=== PATIENT | female | born 1995 | race Caucasian/White ===

== ENCOUNTER 2023-07-15 12:16 | Inpatient (IN) ==
[2023-07-15 12:59] LABS: Basophils # (auto) 0.04 K/uL (0.00-0.20); Basophils % (auto) 0.4 %; Eosinophils # (auto) 0.64 K/uL (0.00-0.50); Eosinophils % (auto) 6.9 %; Hematocrit (blood only) 36.1 % (37.0-47.0); Hemoglobin 12.1 g/dl (12.0-16.0); Immature Granulocytes # (auto) 0.07 K/uL (0.01-0.20); Immature Granulocytes % (auto) 0.8 %; Lymphocytes # (auto) 1.66 K/uL (1.20-3.40); Mean Corpuscular Hemoglobin 28.3 pg (25.0-34.0); Mean Corpuscular Hgb Conc 33.5 g/dL (32.0-36.0); Mean Corpuscular Volume 84.5 fL (80.0-100.0); Mean Platelet Volume 10.7 fL (9.4-12.4); Monocytes % (auto) 7.6 %; Neutrophils # (auto) 6.11 K/uL (1.40-6.50); Neutrophils % (auto) 66.3 %; Platelet Count 239 K/uL (130-400); RDW Coefficient of Variation 13.8 % (11.5-14.5); RDW Standard Deviation 42.8 fL (36.4-46.3); Red Blood Count 4.27 M/uL (4.20-5.40); White Blood Count 9.22 K/ul (4.8-10.8)
[2023-07-15 13:35] LABS: Albumin Globulin Ratio 1.1 (0.9-2); Albumin Level 3.1 gm/dl (3.4-5.0); BUN Creatinine Ratio 14.6 (10-20); Bilirubin,Total 0.2 mg/dl (0.2-1.0); Calcium 8.4 mg/dl (8.6-10.3); Creatinine Clr Calc Pharmacy 110.5 ml/min; Est GFR (African American) 86.9 ml/min; Globulin 2.9 gm/dl (2.5-4.0); Potassium 4.2 mmol/L (3.5-5.1)
[2023-07-15 13:53] LABS: Creatinine Urine Random 288.8 mg/dl; Protein Creatinine Ratio Urine 1.4 (0-0.2); Total Protein Urine Random 390.9 mg/dl (0-11.9)
--- NOTE | 2023-07-15 14:13 | History & Physical Report ---
Date of Service July 15, 2023 Assessment & Plan (1) Preeclampsia: Plan: Elevated BPs and elevated protein/creatinine ratio. Labs showing elevated creatinine and liver enzymes, however does not yet meet criteria for severe features. Discussed that we will continue monitoring patient at L&D - I am concerned that she may develop severe features during this observation time. If lab abnormalities or symptoms or BPs in severe range present, then would recommend induction at that time. Will plan to repeat labs in 6h and reevaluate at that time. Since I suspect will likely deliver baby prior to 37w, recommend celestone for lung maturity. Last Lovenox last night - will reevaluate need for Heparin vs proceeding to induction at next labs this evening. History of Present Illness Chief Complaint: elevated BP Primary Care Provider: Emma Gay 27yo @ 36 08/25. Sent from office to L&D for further eval after BP elevated in office. She is asymptomatic, no headache/vision changes/nausea/vomiting/abd pain. Last Lovenox last night - met with Dr Julio today for switch to Heparin; has not started this yet. Hypothyroid *Check TFTs Q4wks HX DVT 02/07 - on Lovenox *Lovenox 100mg in 3rd trimester *switch to Heparin 10,000 U BID @36w Obesity (BMI between 35-39 @ beginning of ) *Growth US @ 32 wks *Weekly NSTs @ 36wks Allergies Allergy/AdvReac Type Severity Reaction Status Date / Time No Known Allergies Allergy Verified 07/15/23 10:59 Home Medications Medication Instructions Recorded Confirmed Type prenat.vits,juan alberto,[id number] 1 tab PO DAILY 12/27/22 07/15/23 History breast pump #1 ea 06/05/23 07/15/23 Rx breast pump #1 ea 06/05/23 07/15/23 Rx compression socks, medium #1 ea 06/05/23 07/15/23 Rx enoxaparin 100 mg/mL subcutaneous 100 mg subcut Q24H #10 syringes 07/15/23 07/15/23 Rx syringe heparin (porcine) 10,000 unit/mL 10,000 unit subcut Q12H #25 mL 07/15/23 07/15/23 Rx injection solution levothyroxine See Rx Instructions PO .COMPLEX 07/15/23 07/15/23 History syringe with needle 3 mL 25 x 5/8" #50 ea 07/15/23 07/15/23 Rx (BD Eclipse Luer-Danny) Patient History Medical History (Updated 07/15/23 @ 14:16 by Karey Carbajal, ) DVT (deep venous thrombosis) Deep vein phlebitis of lower leg Surgical History (Updated 12/27/22 @ 10:09 by Idalia Yañez RN) S/P wisdom tooth extraction Family History (Updated 12/27/22 @ 10:09 by Idalia Yañez RN) Grandfather (Maternal) Myocardial infarction Sister Hemorrhage affecting Mother Hemorrhage affecting Denies family history of Ovarian cancer Prostate cancer Breast cancer Colorectal cancer Social History (Updated 12/27/22 @ 09:57 by Idalia Yañez, DESI) Smoking Status: Never smoker Second Hand Exposure: No; Do You Dip or Chew Tobacco: No; Hx Alcohol Use: No Hx Substance Use: No Preferred Language: Thai Communication Ability: Effective Channel Development Manager Required: No Beliefs That Will Affect Care: None marital status: marital status details: Richard Atwood ( [phone] Current Living Situation: Spouse Current Living Situation Comment: Lives with and 1 dog current occupational status: employed current occupation: [employer] Teacher Other Information That Helps Us Care for You: No Feels Safe at Home: Yes Safety Concerns: Feels Safe At This Time Assistive Devices: None Review of Systems All systems reviewed & are unremarkable except as noted in HPI & below Physical Exam Constitutional: WD/WN, vitals as above Respiratory: normal respiratory effort, lungs clear to auscultation no respiratory distress Cardiovascular: Rate/Rhythm: regular rate and regular rhythm Gastrointestinal (Abdomen): Inspection/Auscultation: abdomen normal to inspection Percussion/Palpation: abdomen soft; abdomen nontender Gravid. No s/s chorio or abruption. Skin: no rashes, warm and dry Psychiatric: A+Ox3, euthymic affect Results & Data Vital Signs (Past 12 Hours) Vital Signs Temp Pulse Resp BP 07/15/23 14:04 74 171/90 H 07/15/23 13:54 80 153/91 H 07/15/23 13:45 72 157/94 H 07/15/23 13:34 68 148/92 H 07/15/23 13:24 69 155/99 H 07/15/23 13:14 36.5 C 78 18 147/82 H 07/15/23 13:05 75 156/91 H 07/15/23 12:54 74 151/95 H 07/15/23 12:45 79 154/95 H 07/15/23 12:41 36.5 C 79 16 154/95 H 07/15/23 12:30 80 164/103 H Code Status & VTE Plan VTE Prophylaxis Plan VTE Prophylaxis will be ordered: Yes Coding Level of Care Code None Diagnoses Preeclampsia O14.90
[2023-07-15] MEDS ORDERED: BETAMETH SOD PHOS/ACETATE IA 6 MG/ML IM STA (14:19)
[2023-07-15] MEDS ORDERED: LIDOCAINE 1% LOCAL 20 ML VIAL INFIL PRN (17:34)
[2023-07-15] MEDS ORDERED: OXYTOCIN 30 UNITS/NSS 30 UNITS/500 ML BAG IV PRN ×2 (17:34)
[2023-07-15] MEDS ORDERED: MAG SULFATE 4GM BOLUS FROM BAG IV ONE (17:34)
--- NOTE | 2023-07-15 17:42 | Obstetrical Progress Note ---
Date of Service July 15, 2023 Subjective BPs have elevated to meet criteria of preeclampsia with severe features at this point, as >4h apart 160/110 or greater. Discussed with patient. Will admit, start magnesium, will treat elevated BP with PO nifedipine at this time as no IV yet, and will plan to place grimm bulb for cervical ripening. She is in agreement, questions answered. Results & Data Vital Signs (Past 12 Hours) Vital Signs Temp Pulse Resp BP 07/15/23 17:37 71 159/111 H 07/15/23 17:22 71 175/99 H 07/15/23 17:07 64 153/95 H 07/15/23 16:52 68 172/97 H 07/15/23 16:36 72 153/105 H 07/15/23 16:21 77 146/103 H 07/15/23 16:08 69 144/102 H 07/15/23 15:51 75 151/91 H 07/15/23 15:36 71 143/91 H 07/15/23 15:21 78 139/92 07/15/23 15:05 37.0 C 74 20 168/92 H 07/15/23 14:04 74 171/90 H 07/15/23 13:54 80 153/91 H 07/15/23 13:45 72 157/94 H 07/15/23 13:34 68 148/92 H 07/15/23 13:24 69 155/99 H 07/15/23 13:14 36.5 C 78 18 147/82 H 07/15/23 13:05 75 156/91 H 07/15/23 12:54 74 151/95 H 07/15/23 12:45 79 154/95 H 07/15/23 12:41 36.5 C 79 16 154/95 H 07/15/23 12:30 80 164/103 H PG Care Time/CCT Total # of Minutes Spent Total Time Spent with Patient: Total time spent is greater than 50% in coordination of care (as documented) at patient's floor/unit and/or counseling patient: Coding Level of Care Code None
[2023-07-15] MEDS ORDERED: PENICILLIN GK 6 MU in DEXTROSE 5% 250 ML IV STA (17:43)
[2023-07-15] MEDS ORDERED: NIFEdipine 10 MG CAP PO STA (17:45)
[2023-07-15] MEDS: LACTATED RINGER'S 1,000 ML IV PRN (18:20)
[2023-07-15] MEDS: MAGNESIUM SULFATE / WTR 40 GM/1,000 ML BAG IV SCH (18:23)
[2023-07-15 18:52] LABS: Hematocrit (blood only) 39.4 % (37.0-47.0); Hemoglobin 13.6 g/dl (12.0-16.0); Mean Corpuscular Hemoglobin 28.6 pg (25.0-34.0); Mean Corpuscular Hgb Conc 34.5 g/dL (32.0-36.0); Mean Corpuscular Volume 82.8 fL (80.0-100.0); Mean Platelet Volume 10.6 fL (9.4-12.4); Platelet Count 294 K/uL (130-400); RDW Coefficient of Variation 13.9 % (11.5-14.5); RDW Standard Deviation 41.3 fL (36.4-46.3); Red Blood Count 4.76 M/uL (4.20-5.40)
[2023-07-15 19:11] LABS: Albumin Level 3.4 gm/dl (3.4-5.0); Bilirubin,Total 0.2 mg/dl (0.2-1.0); Calcium 8.8 mg/dl (8.6-10.3); Creatinine Clr Calc Pharmacy 107.4 ml/min; Est GFR (African American) 83.9 ml/min; Est GFR (Non-African American) 72.4 ml/min; Globulin 3.4 gm/dl (2.5-4.0); Potassium 4.3 mmol/L (3.5-5.1); Total Protein 6.8 gm/dl (6.0-8.3)
--- NOTE | 2023-07-15 19:41 | Labor Progress Brief Note ---
Date of Service July 15, 2023 Subjective Johnson bulb placed, 35cc sterile water. Tolerated well. Will plan to begin pitocin now, and will start PCN for GBS unknown when the contraction pattern starts. Assessment & Plan Admission and Anticipated Discharge Date Admission Date: July 15, 2023 Results & Data Vital Signs (Past 12 Hours) Vital Signs Temp Pulse Resp BP 07/15/23 19:37 104 H 137/80 07/15/23 19:21 112 H 138/84 07/15/23 19:06 106 H 145/75 H 07/15/23 18:52 112 H 134/67 07/15/23 18:38 118 H 136/81 07/15/23 18:21 130 H 137/72 07/15/23 18:07 79 146/94 H 07/15/23 17:51 82 151/105 H 07/15/23 17:37 71 159/111 H 07/15/23 17:22 71 175/99 H 07/15/23 17:07 64 153/95 H 07/15/23 16:52 68 172/97 H 07/15/23 16:36 72 153/105 H 07/15/23 16:21 77 146/103 H 07/15/23 16:08 69 144/102 H 07/15/23 15:51 75 151/91 H 07/15/23 15:36 71 143/91 H 07/15/23 15:21 78 139/92 07/15/23 15:05 37.0 C 74 20 168/92 H 07/15/23 14:04 74 171/90 H 07/15/23 13:54 80 153/91 H 07/15/23 13:45 72 157/94 H 07/15/23 13:34 68 148/92 H 07/15/23 13:24 69 155/99 H 07/15/23 13:14 36.5 C 78 18 147/82 H 07/15/23 13:05 75 156/91 H 07/15/23 12:54 74 151/95 H 07/15/23 12:45 79 154/95 H 07/15/23 12:41 36.5 C 79 16 154/95 H 07/15/23 12:30 80 164/103 H Coding Level of Care Code None
[2023-07-16 00:50] LABS: Hematocrit (blood only) 36.4 % (37.0-47.0); Hemoglobin 12.2 g/dl (12.0-16.0); Mean Corpuscular Hgb Conc 33.5 g/dL (32.0-36.0); Mean Corpuscular Volume 83.7 fL (80.0-100.0); Mean Platelet Volume 10.8 fL (9.4-12.4); Platelet Count 288 K/uL (130-400); RDW Coefficient of Variation 13.7 % (11.5-14.5); RDW Standard Deviation 41.6 fL (36.4-46.3); Red Blood Count 4.35 M/uL (4.20-5.40); White Blood Count 11.27 K/ul (4.8-10.8)
[2023-07-16 01:06] LABS: Albumin Level 3.2 gm/dl (3.4-5.0); BUN Creatinine Ratio 15.8 (10-20); Bilirubin,Total 0.2 mg/dl (0.2-1.0); Calcium 8.3 mg/dl (8.6-10.3); Creatinine Clr Calc Pharmacy 112.7 ml/min; Est GFR (Non-African American) 76.8 ml/min; Globulin 3.2 gm/dl (2.5-4.0); Magnesium Therapeutic L&D Only 5.1 mg/dL (4.0-8.0); Potassium 4.5 mmol/L (3.5-5.1); Total Protein 6.4 gm/dl (6.0-8.3)
[2023-07-16 06:41] LABS: Hematocrit (blood only) 36.4 % (37.0-47.0); Hemoglobin 12.5 g/dl (12.0-16.0); Mean Corpuscular Hemoglobin 28.6 pg (25.0-34.0); Mean Corpuscular Hgb Conc 34.3 g/dL (32.0-36.0); Mean Corpuscular Volume 83.3 fL (80.0-100.0); Mean Platelet Volume 10.6 fL (9.4-12.4); Platelet Count 285 K/uL (130-400); RDW Coefficient of Variation 13.8 % (11.5-14.5); RDW Standard Deviation 41.7 fL (36.4-46.3); Red Blood Count 4.37 M/uL (4.20-5.40); White Blood Count 15.98 K/ul (4.8-10.8)
[2023-07-16 06:55] LABS: Albumin Level 3.1 gm/dl (3.4-5.0); BUN Creatinine Ratio 15.8 (10-20); Bilirubin,Total 0.2 mg/dl (0.2-1.0); Calcium 7.8 mg/dl (8.6-10.3); Creatinine Clr Calc Pharmacy 119.8 ml/min; Est GFR (African American) 95.8 ml/min; Est GFR (Non-African American) 82.7 ml/min; Globulin 3.1 gm/dl (2.5-4.0); Magnesium Therapeutic L&D Only 5.9 mg/dL (4.0-8.0); Potassium 4.4 mmol/L (3.5-5.1); Total Protein 6.2 gm/dl (6.0-8.3)
[2023-07-16] MEDS: LACTATED RINGER'S 1,000 ML IV PRN ×3 (07:44→17:17)
--- NOTE | 2023-07-16 07:55 | Obstetrical Progress Note ---
Date of Service July 16, 2023 Assessment & Plan Admission and Anticipated Discharge Date Admission Date: July 15, 2023 Subjective Comfortable. FHT Cat 1 Force occ Johnson bulb still in place. Labs improving. BP wnl. Patient in good spirits. Continue IOL, continue mag. 2nd dose celestone ordered for today. Results & Data Vital Signs (Past 12 Hours) Vital Signs Temp Pulse Resp BP 07/16/23 07:37 101 H 137/85 07/16/23 07:07 95 H 133/85 07/16/23 06:41 93 H 141/86 H 07/16/23 06:08 89 151/88 H 07/16/23 06:00 18 07/16/23 06:00 18 07/16/23 05:37 80 158/84 H 07/16/23 05:07 84 156/85 H 07/16/23 05:00 18 07/16/23 05:00 18 07/16/23 04:37 81 140/73 07/16/23 04:07 80 134/75 07/16/23 04:00 18 07/16/23 04:00 18 07/16/23 03:38 88 147/82 H 07/16/23 03:08 82 124/85 07/16/23 03:00 36.6 C 18 07/16/23 03:00 18 07/16/23 03:00 18 07/16/23 03:00 36.6 C 18 07/16/23 02:37 86 139/94 07/16/23 02:07 75 151/93 H 07/16/23 02:00 18 07/16/23 02:00 18 07/16/23 01:36 75 142/89 H 07/16/23 01:07 81 136/82 07/16/23 01:00 18 07/16/23 01:00 18 07/16/23 00:37 88 153/81 H 07/16/23 00:07 89 139/80 07/16/23 00:02 18 07/16/23 00:02 18 07/15/23 23:39 89 132/80 07/15/23 23:00 36.5 C 18 07/15/23 23:00 18 07/15/23 23:00 18 07/15/23 23:00 36.5 C 18 07/15/23 22:37 81 133/76 11/27/23 22:07 83 141/86 H 07/15/23 22:00 18 07/15/23 22:00 18 07/15/23 21:37 100 H 128/84 07/15/23 21:07 96 H 147/84 H 07/15/23 21:00 18 07/15/23 21:00 18 07/15/23 20:52 90 134/79 07/15/23 20:37 93 H 126/58 L 07/15/23 20:21 91 H 136/82 07/15/23 20:06 95 H 132/73 07/15/23 20:00 18 07/15/23 20:00 18 PG Care Time/CCT Total # of Minutes Spent Total Time Spent with Patient: Total time spent is greater than 50% in coordination of care (as documented) at patient's floor/unit and/or counseling patient: Coding Level of Care Code None
[2023-07-16] MEDS ORDERED: fentaNYL citrate PF 100 MCG/2 ML VIAL ONE (09:09)
[2023-07-16] MEDS ORDERED: ePHEDrine sulfate 50 MG/ML AMP ONE (09:09)
[2023-07-16] MEDS ORDERED: SODIUM CHLORIDE 0.9% PF INJ 10 ML VIAL ONE (09:10)
[2023-07-16] MEDS ORDERED: BUPIVACAINE 0.25% PF 30 ML VIAL ONE (09:10)
[2023-07-16] MEDS ORDERED: fentANYL 2 MCG/ML BUPIVacaine 0.125%-NSS 100ML BAG ONE (09:10)
[2023-07-16] MEDS ORDERED: LIDOCAINE 2%/EPINEPHRINE 1:200,000 20 ML PF ONE (09:10)
--- NOTE | 2023-07-16 09:23 | Labor Progress Brief Note ---
Date of Service July 16, 2023 Subjective Reason For Note: Routine Evaluation Denying preeclampsia symptoms Assessment & Plan (1) Severe pre-eclampsia affecting childbirth: Plan: 27-year-old G1, P0 with severe preeclampsia at 36 weeks 2 days gestational age. Fetus: Category 1 tracing Labor: Status post Johnson. Continue oxytocin per regular protocol. Rupture membranes for clear fluid. GBS unknown: Continue penicillin Severe preeclampsia: Continue magnesium sulfate. Denies preeclampsia symptoms. Mild range blood pressures at present. Labs within normal range. (2) Obesity affecting in third trimester: Obesity type affecting : unspecified obesity Qualified Code(s): O99.213 - Obesity complicating , third trimester (3) Hypothyroidism during : Trimester: third trimester Qualified Code(s): O99.283 - Endocrine, nutritional and metabolic diseases complicating , third trimester; E03.9 - Hypothyroidism, unspecified (4) Supervision of normal first : Trimester: third trimester Qualified Code(s): Z34.03 - Encounter for supervision of normal first , third trimester Admission and Anticipated Discharge Date Admission Date: July 15, 2023 Physical Exam Genitourinary: normal external appearance Manual OB Exam: + cervical dilation 3 cm, + cervical effacement 70%, + station -2 and + amniotic fluid (AROM) clear OB Exam Monitor Tracing: + external FHT monitor used, + external uterine monitor used, + category I and + normal FHT variability; no early decelerations present, no late decelerations present and no variable decelerations Results & Data Vital Signs (Past 12 Hours) Vital Signs Temp Pulse Resp BP Pulse Ox 07/16/23 09:14 104 H 07/16/23 09:09 90 98 07/16/23 09:07 87 146/87 H 07/16/23 09:04 104 H 100 07/16/23 09:00 18 07/16/23 09:00 18 07/16/23 08:59 96 H 99 07/16/23 08:54 88 98 07/16/23 08:49 103 H 98 07/16/23 08:44 102 H 99 07/16/23 08:39 99 H 98 07/16/23 08:37 93 H 123/69 07/16/23 08:34 91 H 99 07/16/23 08:29 89 99 07/16/23 08:07 100 H 129/75 07/16/23 08:00 16 07/16/23 08:00 16 07/16/23 07:37 101 H 137/85 07/16/23 07:30 36.5 C 18 07/16/23 07:30 18 07/16/23 07:07 95 H 133/85 07/16/23 06:41 93 H 141/86 H 07/16/23 06:08 89 151/88 H 07/16/23 06:00 18 07/16/23 06:00 18 07/16/23 05:37 80 158/84 H 07/16/23 05:07 84 156/85 H 07/16/23 05:00 18 07/16/23 05:00 18 07/16/23 04:37 81 140/73 07/16/23 04:07 80 134/75 07/16/23 04:00 18 07/16/23 04:00 18 07/16/23 03:38 88 147/82 H 07/16/23 03:08 82 124/85 07/16/23 03:00 36.6 C 18 07/16/23 03:00 18 07/16/23 03:00 18 07/16/23 03:00 36.6 C 18 07/16/23 02:37 86 139/94 07/16/23 02:07 75 151/93 H 07/16/23 02:00 18 07/16/23 02:00 18 07/16/23 01:36 75 142/89 H 07/16/23 01:07 81 136/82 07/16/23 01:00 18 07/16/23 01:00 18 07/16/23 00:37 88 153/81 H 07/16/23 00:07 89 139/80 07/16/23 00:02 18 07/16/23 00:02 18 07/15/23 23:39 89 132/80 07/15/23 23:00 36.5 C 18 07/15/23 23:00 18 07/15/23 23:00 18 07/15/23 23:00 36.5 C 18 07/15/23 22:37 81 133/76 07/15/23 22:07 83 141/86 H 07/15/23 22:00 18 07/15/23 22:00 18 07/15/23 21:37 100 H 128/84 Coding Level of Care Code None Diagnoses Severe pre-eclampsia affecting childbirth O14.14 Obesity affecting in third trimester, unspecified obesity type O99.213 Obesity type affecting : unspecified obesity Hypothyroidism during in third trimester O99.283; E03.9 Trimester: third trimester Encounter for supervision of normal first in third trimester Z34.03 Trimester: third trimester
--- NOTE | 2023-07-16 09:31 | Anesthesiology Consultation ---
Date of Service July 16, 2023 Assessment & Plan Chart Review Chart Review: Patient NOT seen in Pre Admission Testing and Acceptable Risk for Labor Epidural Consults Requested none ASA ASA3 Proposed Anesthesia Anesthesia Type: Labor Epidural Risk / Benefits Reviewed With: PT / POA / Parent / Guardian, Accepts Plan and Informed Consent Obtained History Height/Weight Height: 5 ft 6 in Weight: 122.47 kg Allergies Allergy/AdvReac Type Severity Reaction Status Date / Time No Known Allergies Allergy Verified 07/15/23 10:59 Medications Home Medications Medication Instructions Recorded Confirmed Last Taken prenat.vits,juan alberto,[id number] 1 tab PO DAILY 12/27/22 07/15/23 07/15/23 08:30 breast pump #1 ea 06/05/23 07/15/23 Unknown breast pump #1 ea 06/05/23 07/15/23 Unknown compression socks, medium #1 ea 06/05/23 07/15/23 Unknown enoxaparin 100 mg/mL subcutaneous 100 mg subcut Q24H #10 syringes 07/15/23 07/15/23 07/14/23 21:00 syringe heparin (porcine) 10,000 unit/mL 10,000 unit subcut Q12H #25 mL 07/15/23 07/15/23 Unknown injection solution levothyroxine See Rx Instructions PO .COMPLEX 07/15/23 07/15/23 07/15/23 08:30 syringe with needle 3 mL 25 x 5/8" #50 ea 07/15/23 07/15/23 Unknown (BD Eclipse Luer-Danny) Active Medications Generic Name Dose Route Start Last Admin Trade Name Freq PRN Reason Stop Dose Admin Lactated Ringer's 1,000 mls @ 125 mls/hr 07/15/23 17:34 07/16/23 09:40 Lr IV 07/17/23 17:33 75 mls/hr .Q8H PRN Infusion L&D Protocol Protocol Oxytocin 30 units in 500 mls @ 19 mls/hr 07/15/23 17:34 07/16/23 08:00 Pitocin 30 Units/Nss IV 07/17/23 17:33 1.14 units/hr .Q24H PRN 19 mls/hr Labor Induction/Augmentation Titration Protocol 1.14 UNITS/HR Magnesium Sulfate 40 gm in 1,000 mls @ 50 mls/hr 07/15/23 17:45 07/16/23 07:07 Magnesium Sulfate / Wtr IV 08/14/23 17:44 50 mls/hr .Q20H HAILEY Infusion NPO Date Last Intake of Fluids: 07/16/23 Time Last Intake of Fluids: 06:00 Date Last Intake of Solids: 07/15/23 Time Last Intake of Solids: 18:00 Past Medical History Medical History DVT (deep venous thrombosis) Deep vein phlebitis of lower leg Exercise / Class Metabolic Activity II 4-5 Yardwork/Stairs/Walk up hill Past Family History Family History Grandfather (Maternal) Myocardial infarction Sister Hemorrhage affecting Mother Hemorrhage affecting Denies family history of Ovarian cancer Prostate cancer Breast cancer Colorectal cancer Past Surgical History Surgical History S/P wisdom tooth extraction Past Anesthesia History No Hx of Anesthesia Complications and No Family Hx of Anesthesia Complications History of PONV No Hx of PONV and No Hx of Motion Sickness Social History Smoking Status: Never smoker Do You Dip or Chew Tobacco: No Hx Alcohol Use: No Hx Substance Use: No substance use type: does not use Review of Systems ROS Unobtainable: All systems reviewed & are unremarkable except as noted in HPI & below Physical Exam Vital Signs Last Vital Signs Temp 36.5 C 07/16/23 07:30 Pulse 97 H 07/16/23 09:29 Resp 18 07/16/23 09:30 BP 146/87 H 07/16/23 09:07 Pulse Ox 97 07/16/23 09:29 ENMT Mouth: no TMJ abnormality Thyromental Distance: > or= 3.5 Finger Breadths Mallampati Class: III Neck normal visual inspection and trachea midline; neck extension not limited Respiratory normal respiratory effort Auscultation: lungs clear to auscultation bilaterally Cardiovascular Rate/Rhythm: regular rate and regular rhythm Heart Sounds: no murmur Musculoskeletal Spine: normal cervical ROM Extremities: full ROM of extremities Neurologic moves all extremities Psychiatric Orientation: alert and oriented x 3 Testing Laboratory Results 07/16/23 06:19 07/16/23 06:19 Blood Type A Positive 07/15/23 12:39 Antibody Screen NEGATIVE 07/15/23 12:39
[2023-07-16] MEDS ORDERED: fentaNYL citrate PF 100 MCG/2 ML VIAL EPI PRN (10:06)
[2023-07-16] MEDS ORDERED: fentaNYL citrate PF 100 MCG/2 ML VIAL EPI STA (10:06)
[2023-07-16] MEDS ORDERED: BUPIVACAINE 0.25% PF 30 ML VIAL EPI PRN (10:06)
[2023-07-16] MEDS ORDERED: ePHEDrine sulfate 50 MG/ML AMP IV PRN (10:06)
[2023-07-16] MEDS ORDERED: LIDOCAINE 2% MPF LOCAL 5 ML VIAL EPI PRN (10:06)
[2023-07-16] MEDS ORDERED: fentANYL 2 MCG/ML BUPIVacaine 0.125%-NSS 100ML BAG EPI PRN (10:06)
[2023-07-16] MEDS ORDERED: diphenhydrAMINE 50 MG/ML VIAL IV PRN (10:06)
[2023-07-16] MEDS ORDERED: NALOXONE HCL 0.4 MG/1 ML VIAL/CARP IV PRN (10:06)
[2023-07-16] MEDS ORDERED: NALBUPHINE HCL 5 MG in SYRINGE 0 ML IV PRN (10:06)
[2023-07-16] MEDS ORDERED: BUPIVACAINE 0.25% PF 30 ML VIAL EPI STA (10:06)
[2023-07-16] MEDS ORDERED: SODIUM CHLORIDE 0.9% PF INJ 10 ML VIAL EPI PRN (10:06)
[2023-07-16] MEDS ORDERED: NALOXONE HCL 1 MG in SODIUM CHLORIDE 0.9% 1,000 ML IV PRN (10:06)
[2023-07-16] MEDS ORDERED: LIDOCAINE 2%/EPINEPHRINE 1:200,000 20 ML PF EPI STA (10:06)
[2023-07-16] MEDS ORDERED: ROPIVACAINE 0.5% PF 5 MG/ML 20 ML VIAL EPI PRN (10:06)
[2023-07-16] MEDS ORDERED: SODIUM CHLORIDE 0.9% PF INJ 10 ML VIAL EPI STA (10:06)
[2023-07-16] MEDS: MAGNESIUM SULFATE / WTR 40 GM/1,000 ML BAG IV SCH (11:43)
[2023-07-16 12:38] LABS: Hematocrit (blood only) 35.3 % (37.0-47.0); Hemoglobin 11.7 g/dl (12.0-16.0); Mean Corpuscular Hemoglobin 28.1 pg (25.0-34.0); Mean Corpuscular Hgb Conc 33.1 g/dL (32.0-36.0); Mean Corpuscular Volume 84.7 fL (80.0-100.0); Mean Platelet Volume 10.7 fL (9.4-12.4); Platelet Count 300 K/uL (130-400); RDW Coefficient of Variation 13.9 % (11.5-14.5); RDW Standard Deviation 42.7 fL (36.4-46.3); Red Blood Count 4.17 M/uL (4.20-5.40)
[2023-07-16 12:55] LABS: Albumin Globulin Ratio 1.1 (0.9-2); Albumin Level 3.1 gm/dl (3.4-5.0); BUN Creatinine Ratio 13.7 (10-20); Bilirubin,Total 0.2 mg/dl (0.2-1.0); Calcium 7.6 mg/dl (8.6-10.3); Creatinine Clr Calc Pharmacy 97.3 ml/min; Est GFR (African American) 74.5 ml/min; Est GFR (Non-African American) 64.3 ml/min; Globulin 2.9 gm/dl (2.5-4.0); Potassium 4.2 mmol/L (3.5-5.1)
[2023-07-16] MEDS: PENICILLIN GK 3 MU in DEXTROSE 5% 100 ML IV PRN ×2 (14:03→18:55)
--- NOTE | 2023-07-16 14:28 | Anesthesia Procedure Note ---
Date of Service July 16, 2023 Anesthesia Epidural Re-Dose Vital Signs Temp Pulse Resp BP Pulse Ox 36.5 C 82 16 135/74 97 07/16/23 11:30 07/16/23 14:24 07/16/23 13:30 07/16/23 14:13 07/16/23 14:24 Notes Pain Intensity: 0 Dilatation (cm): 10 Effacement (%): 75 After Epidural Re-Dose Mental Status: alert / awake / arousable and participated in evaluation Pain: improving with treatment Airway Patency, RR, SpO2: stable & adequate BP & HR: stable & adequate Additional Notes: Asked to assess patient for pain on right side. Patient states epidural had been working well until one hour ago Level assessed with ice which revealted T12 level on left, L1 level on right. Redosed epidural with 8 cc of 0.25 bupi. Pain improved. BP stable.
[2023-07-16] MEDS ORDERED: BETAMETH SOD PHOS/ACETATE IA 6 MG/ML IM ONE (14:30)
[2023-07-16] MEDS ORDERED: ONDANSETRON INJ 2 MG/ML 2 ML VIAL IV PRN (16:02)
[2023-07-16] MEDS ORDERED: miSOPROStoL 200 MCG TAB ONE (20:14)
[2023-07-16] MEDS ORDERED: OXYTOCIN 30 UNITS/NSS 30 UNITS/500 ML BAG IV PRN (20:49)
[2023-07-16] MEDS ORDERED: DIPHTHERIA/TETANUS/PERTUSSIS Vaccine (Tdap, Age 7+yrs) 0.5mL SYR/VL IM ONE (20:49)
[2023-07-16] MEDS ORDERED: HYDROCORTISONE ACETATE 25 MG SUPP PR PRN (20:49)
[2023-07-16] MEDS ORDERED: miSOPROStoL 200 MCG TAB PR ONE (20:49)
[2023-07-16] MEDS ORDERED: ACETAMINOPHEN 325 MG TAB PO PRN (20:49)
--- NOTE | 2023-07-16 20:59 | Delivery Summary ---
Vaginal Delivery Summary Date of Service July 16, 2023 Vaginal Delivery Summary and 1st Degree LAC Patient progressed to 10 cm dilated 100% effaced +2 station pushed over intact perineum with epidural anesthesia and delivered a viable female with weight and Apgars pending. Had the delivered in CHRISTIE position transition to right transverse. No nuchal cord was noted. Body and shoulders quickly followed. was noted be vigorous soon after delivery and a 1 minute delayed cord clamping was initiated. Cord was then double clamped and cut and remained on maternal abdomen. Cord blood was obtained. Attention was then turned to deliver the placenta was delivered intact three-vessel cord gentle cord traction. On inspection of perineum vagina and cervix there is noted to be a first-degree perineal laceration which was repaired with 3-0 Vicryl in continuous running stitch. Needle, sponge and instrument counts were correct at the completion of the case. Mom continued on magnesium with plan to continue for 24 hours postdelivery. Patient is currently stable with mostly mild range blood pressures noted. Denies preeclampsia symptoms and labs have been within normal limits. Estimated blood loss of 300 mL. No complications with delivery. 800 mcg of Cytotec placed per rectum. [facility] Vaginal Delivery Charge Delivery Type Details: and 1st Degree LAC
[2023-07-16] MEDS: IBUPROFEN 600 MG TAB PO PRN (22:27)
[2023-07-16] MEDS: BENZOCAINE 20% SPRY 85 APPLN/85 GM CAN EXT PRN (22:28)
--- NOTE | 2023-07-17 04:51 | Obstetrical Progress Note ---
Date of Service <Sumeet Bal DO - Last Filed: 07/17/23 07:18> July 17, 2023 Assessment & Plan <Sumeet Bal DO - Last Filed: 07/17/23 07:18> (1) Preeclampsia: (2) (spontaneous vaginal delivery): (3) History of DVT (deep vein thrombosis): Plan 27 year old female, , PPD#1: Eating well, grimm catheter in place, has not yet ambulated Vitals reviewed, significant for elevated BP, continue mag for management of preeclampsia Resume Lovenox due to h/o DVT, plan to continue for 6 weeks post Pain well controlled with Motrin Routine post care as able - diet progression as tolerated Will have 6 week follow up with Dr. Shelton <Abdulkadir Shelton MD - Last Filed: 07/18/23 09:34> (1) Preeclampsia: (2) (spontaneous vaginal delivery): (3) History of DVT (deep vein thrombosis): Subjective <Sumeet Bal - Last Filed: 07/17/23 07:18> Voiding: grimm catheter in place Passing Gas:: Yes Diet Tolerance:: regular diet Lochia:: Moderate Feeding Type:: breast feeding Has not yet ambulated Pain well controlled with Motrin Review of Systems -Denies fever or chills -Denies dyspnea, chest pain, or palpitations -Denies RUQ abdominal pain -Denies dysuria -Denies headache or changes in vision Physical Exam <Sumeet Bal - Last Filed: 07/17/23 07:18> General: Alert and oriented. No acute distress Cardiac: Regular rate and rhythm, no murmurs appreciated Respiratory: Lungs clear to auscultation bilaterally, No increased work of breathing Abdominal: Soft, non-tender, non-distended. Bowel sounds present. Uterus: Uterine fundus firm, palpable below umbilicus Extremities: No lower extremity edema appreciated, SCDs in place Results & Data <Sumeet Bal - Last Filed: 07/17/23 07:18> Vital Signs (Past 12 Hours) Vital Signs Temp Pulse Resp BP Pulse Ox 07/17/23 04:48 81 92 07/17/23 04:47 86 89 L 07/17/23 04:43 82 92 07/17/23 04:40 87 90 07/17/23 04:38 84 91 07/17/23 04:33 89 93 07/17/23 04:28 87 94 07/17/23 04:23 85 94 07/17/23 04:18 88 94 07/17/23 04:13 93 H 95 07/17/23 04:08 88 94 07/17/23 04:04 87 130/74 07/17/23 04:03 93 H 95 07/17/23 03:58 89 94 07/17/23 03:53 95 H 95 07/17/23 03:48 96 H 96 07/17/23 03:43 95 H 96 07/17/23 03:38 86 94 07/17/23 03:33 92 H 96 07/17/23 03:28 93 H 96 07/17/23 03:23 91 H 96 07/17/23 03:18 98 H 96 07/17/23 03:15 36.5 C 20 07/17/23 03:15 20 07/17/23 03:13 98 H 97 07/17/23 03:08 101 H 96 07/17/23 03:03 104 H 95 07/17/23 02:58 99 H 96 07/17/23 02:53 92 H 95 07/17/23 02:48 92 H 96 07/17/23 02:43 83 95 07/17/23 02:38 82 95 07/17/23 02:33 93 H 95 07/17/23 02:28 93 H 96 07/17/23 02:23 75 95 07/17/23 02:18 81 95 07/17/23 02:13 85 95 07/17/23 02:08 81 95 07/17/23 02:03 80 95 07/17/23 02:02 84 141/85 H 07/17/23 02:00 18 07/17/23 01:58 81 95 07/17/23 01:53 92 H 95 07/17/23 01:48 93 H 96 07/17/23 01:43 87 93 07/17/23 01:38 87 95 07/17/23 01:33 88 95 07/17/23 01:28 85 94 07/17/23 01:23 86 94 07/17/23 01:18 84 94 11/29/23 01:13 86 94 07/17/23 01:08 84 92 07/17/23 01:05 18 07/17/23 01:03 86 93 07/17/23 01:02 84 137/83 07/17/23 00:58 86 94 07/17/23 00:53 88 93 07/17/23 00:48 85 94 07/17/23 00:43 88 93 07/17/23 00:38 87 94 07/17/23 00:33 84 93 07/17/23 00:28 82 93 07/17/23 00:23 84 91 07/17/23 00:18 86 96 07/17/23 00:15 16 07/17/23 00:13 88 96 07/17/23 00:08 83 96 07/17/23 00:03 95 07/17/23 00:03 82 07/17/23 00:03 81 157/94 H 07/16/23 23:58 89 95 07/16/23 23:53 91 H 97 07/16/23 23:48 99 H 94 07/16/23 23:43 100 H 95 07/16/23 23:38 96 H 95 07/16/23 23:33 99 H 94 07/16/23 23:28 85 93 07/16/23 23:23 85 92 07/16/23 23:18 83 93 07/16/23 23:13 83 93 07/16/23 23:10 36.5 C 18 07/16/23 23:10 18 07/16/23 23:08 91 H 96 07/16/23 23:01 89 154/94 H 07/16/23 22:46 88 149/87 H 07/16/23 22:31 88 147/86 H 07/16/23 22:16 91 H 163/94 H 07/16/23 22:09 94 H 97 07/16/23 22:04 92 H 97 07/16/23 22:00 36.7 C 20 07/16/23 22:00 91 H 144/84 H 07/16/23 21:59 83 95 07/16/23 21:54 85 96 07/16/23 21:49 82 97 07/16/23 21:45 83 149/89 H 07/16/23 21:44 81 97 07/16/23 21:39 83 97 07/16/23 21:34 91 H 97 07/16/23 21:30 20 07/16/23 21:30 92 H 157/88 H 07/16/23 21:29 94 H 99 07/16/23 21:24 92 H 98 07/16/23 21:19 90 97 07/16/23 21:15 93 H 166/92 H 07/16/23 21:14 90 98 07/16/23 21:09 88 98 07/16/23 21:04 85 99 07/16/23 21:00 16 07/16/23 21:00 85 155/85 H 07/16/23 20:59 86 97 07/16/23 20:54 84 97 07/16/23 20:49 86 97 07/16/23 20:45 20 07/16/23 20:45 84 158/94 H 07/16/23 20:44 85 100 07/16/23 20:39 87 99 07/16/23 20:34 90 97 07/16/23 20:30 20 07/16/23 20:30 20 07/16/23 20:30 85 139/91 07/16/23 20:29 87 98 07/16/23 20:24 89 97 07/16/23 20:19 87 98 07/16/23 20:15 20 07/16/23 20:15 86 145/87 H 07/16/23 20:14 87 98 07/16/23 20:09 87 95 07/16/23 20:04 98 H 97 07/16/23 20:01 100 H 141/78 H 07/16/23 20:00 20 07/16/23 19:59 113 H 98 07/16/23 19:54 107 H 98 07/16/23 19:50 93 H 142/79 H 07/16/23 19:49 95 H 97 07/16/23 19:44 96 H 98 07/16/23 19:39 106 H 97 07/16/23 19:36 104 H 142/80 H 07/16/23 19:34 108 H 98 07/16/23 19:31 20 07/16/23 19:31 20 07/16/23 19:29 96 H 98 07/16/23 19:24 123 H 99 07/16/23 19:20 90 140/74 07/16/23 19:19 99 H 97 07/16/23 19:14 87 96 07/16/23 19:09 94 H 97 07/16/23 19:06 112 H 149/67 H 07/16/23 19:04 84 98 07/16/23 19:01 20 07/16/23 19:01 20 07/16/23 18:59 98 H 98 07/16/23 18:54 92 H 99 07/16/23 18:50 111 H 145/67 H 07/16/23 18:49 102 H 97 07/16/23 18:45 18 07/16/23 18:45 18 07/16/23 18:44 91 H 98 07/16/23 18:39 110 H 99 07/16/23 18:36 98 H 169/82 H 07/16/23 18:34 82 97 07/16/23 18:29 82 99 07/16/23 18:24 91 H 97 07/16/23 18:19 87 97 07/16/23 18:14 82 97 07/16/23 18:09 75 99 07/16/23 18:07 72 151/95 H 07/16/23 18:04 79 98 07/16/23 18:00 18 07/16/23 18:00 18 07/16/23 17:59 74 97 07/16/23 17:54 73 98 07/16/23 17:53 80 119/65 07/16/23 17:49 96 H 100 07/16/23 17:44 84 99 07/16/23 17:39 78 99 07/16/23 17:35 80 125/66 07/16/23 17:34 80 96 07/16/23 17:30 18 07/16/23 17:30 18 07/16/23 17:30 18 07/16/23 17:29 82 99 07/16/23 17:24 80 99 07/16/23 17:20 83 123/68 07/16/23 17:19 84 96 07/16/23 17:14 83 98 07/16/23 17:09 36.4 C L 83 97 07/16/23 17:05 86 132/71 07/16/23 17:04 86 98 07/16/23 17:00 18 07/16/23 17:00 18 07/16/23 16:59 91 H 98 07/16/23 16:54 89 98 Supervising Physician <Abdulkadir Shelton MD - Last Filed: 07/18/23 09:34> Co-Signing Physician Notes Patient seen and evaluated with resident and agree with the above findings and plan. Will continue magnesium for 24 hours postdelivery. Elevated creatinine noted and have repeat lab ordered. Denying any preeclampsia symptoms otherwise Resident Activity Tracking <Sumeet Bal DO - Last Filed: 07/17/23 07:18> Resident Involvement: Resident Care Provided Care Provided: OB Delivery
[2023-07-17 06:07] LABS: Hematocrit (blood only) 31.9 % (37.0-47.0); Hemoglobin 10.8 g/dl (12.0-16.0); Mean Corpuscular Hemoglobin 28.4 pg (25.0-34.0); Mean Corpuscular Hgb Conc 33.9 g/dL (32.0-36.0); Mean Corpuscular Volume 83.9 fL (80.0-100.0); Mean Platelet Volume 10.4 fL (9.4-12.4); Platelet Count 291 K/uL (130-400); RDW Coefficient of Variation 14.2 % (11.5-14.5); RDW Standard Deviation 43.2 fL (36.4-46.3); White Blood Count 22.37 K/ul (4.8-10.8)
[2023-07-17] MEDS: MAGNESIUM SULFATE / WTR 40 GM/1,000 ML BAG IV SCH (07:05)
[2023-07-17] MEDS: IBUPROFEN 600 MG TAB PO PRN (08:12)
[2023-07-17] MEDS: FERROUS SULFATE 325 MG TAB PO SCH (08:12)
[2023-07-17] MEDS: PRENATAL VITAMIN 1 TAB PO SCH (08:12)
[2023-07-17] MEDS: DOCUSATE SODIUM 100 MG CAP PO SCH ×3 (08:13→21:01)
[2023-07-17 08:29] LABS: Albumin Level 2.8 gm/dl (3.4-5.0); BUN Creatinine Ratio 14.1 (10-20); Bilirubin,Total 0.3 mg/dl (0.2-1.0); Calcium 6.7 mg/dl (8.6-10.3); Creatinine Clr Calc Pharmacy 88.9 ml/min; Est GFR (African American) 66.8 ml/min; Est GFR (Non-African American) 57.6 ml/min; Globulin 2.7 gm/dl (2.5-4.0); Potassium 4.4 mmol/L (3.5-5.1); Total Protein 5.5 gm/dl (6.0-8.3)
[2023-07-17] MEDS: LACTATED RINGER'S 1,000 ML IV PRN (08:30)
[2023-07-17] MEDS ORDERED: ENOXAPARIN 100 MG/1ML SYR SQ SCH (09:00)
--- NOTE | 2023-07-17 10:45 | Communication Note ---
Date of Service: July 17, 2023 CMP returned w/ Cr 1.28, is feeling well and has good UOP. Will decrease mag to 1g/hr and check mag level now. Plan to repeat cmp and mag level q6hr until mag is d/c this evening
[2023-07-17 11:24] LABS: Magnesium Therapeutic L&D Only 8.2 mg/dL (4.0-8.0)
[2023-07-17 15:16] LABS: Albumin Globulin Ratio 1.1 (0.9-2); Albumin Level 2.8 gm/dl (3.4-5.0); BUN Creatinine Ratio 12.9 (10-20); Bilirubin,Total 0.2 mg/dl (0.2-1.0); Calcium 6.7 mg/dl (8.6-10.3); Creatinine Clr Calc Pharmacy 73.4 ml/min; Est GFR (Non-African American) 45.7 ml/min; Globulin 2.6 gm/dl (2.5-4.0); Magnesium Therapeutic L&D Only 7.5 mg/dL (4.0-8.0); Potassium 4.3 mmol/L (3.5-5.1); Total Protein 5.4 gm/dl (6.0-8.3)
--- NOTE | 2023-07-17 15:47 | Communication Note ---
Date of Service: July 17, 2023 -Tigertexted Dr. Julio re anticoagulation - she recommends lovenox 40mg q12 due to BMI > 40 x 8wk and iIf she wanted to try warfarin she can. Pt likely will want to transition to oral anticoagulation but amenable to lovenox 40q12 while inpatient and will meet w/ Dr. Julio for this outpt -mag level slightly lower and still therapeutic. Cr slightly higher at 1.5 but not at a level that is recommended to dc mag at this point. UOP is still adequate and clear. Mag is to stop at 1930 tonight so will recheck Cr shortly after that, repeat mag level not indicated as will be stopped in a few hours. -pt and partner given time for questions, answered to apparent satisfaction
[2023-07-17] MEDS ORDERED: bisacodyL 5 MG TABEC PO SCH (20:00)
[2023-07-17] MEDS: BENZOCAINE 20% SPRY 85 APPLN/85 GM CAN EXT PRN (20:28)
[2023-07-17 20:36] LABS: Albumin Level 2.7 gm/dl (3.4-5.0); BUN Creatinine Ratio 14.5 (10-20); Bilirubin,Total 0.2 mg/dl (0.2-1.0); Calcium 6.7 mg/dl (8.6-10.3); Creatinine Clr Calc Pharmacy 78.5 ml/min; Est GFR (African American) 57.5 ml/min; Est GFR (Non-African American) 49.6 ml/min; Globulin 2.7 gm/dl (2.5-4.0); Potassium 4.8 mmol/L (3.5-5.1); Total Protein 5.4 gm/dl (6.0-8.3)
[2023-07-18] MEDS ORDERED: bisacodyL 10 MG SUPP PR PRN
--- NOTE | 2023-07-18 04:31 | Obstetrical Progress Note ---
Date of Service <Sumeet Bal DO - Last Filed: 07/18/23 05:54> July 18, 2023 Assessment & Plan <Sumeet Bal DO - Last Filed: 07/18/23 05:54> (1) Preeclampsia: (2) (spontaneous vaginal delivery): (3) History of DVT (deep vein thrombosis): Plan 27 year old female, , PPD#2: Eating well, voiding well, ambulating well Vitals reviewed, significant for intermittently elevated BP, most recent WNL Continue Lovenox Pain well controlled with Tylenol Routine post care - OOB, ambulate, diet progression as tolerated Will have 6 week follow up with Dr. Shelton <Aziza Tamayo MD - Last Filed: 07/18/23 08:23> (1) Preeclampsia: (2) (spontaneous vaginal delivery): (3) History of DVT (deep vein thrombosis): Subjective <Sumeet Bal - Last Filed: 07/18/23 05:54> Ambulation: ambulating normally Voiding: no voiding problems Passing Gas:: Yes Diet Tolerance:: regular diet Lochia:: Moderate Feeding Type:: breast feeding Pain well controlled with Tylenol Review of Systems -Denies fever or chills -Denies dyspnea, chest pain, or palpitations -Denies dysuria -Denies headache or changes in vision Physical Exam <Sumeet Bal DO - Last Filed: 07/18/23 05:54> General: Alert and oriented. No acute distress Cardiac: Regular rate and rhythm, no murmurs appreciated Respiratory: Lungs clear to auscultation bilaterally, No increased work of breathing Abdominal: Soft, non-tender, non-distended. Bowel sounds present. Uterus: Uterine fundus firm, palpable below umbilicus Extremities: No lower extremity edema appreciated, SCDs in place Results & Data <Sumeet Bal - Last Filed: 07/18/23 05:54> Vital Signs (Past 12 Hours) Vital Signs Temp Pulse Pulse Resp BP BP BP 07/18/23 04:14 138/87 07/17/23 23:58 36.9 C 67 16 135/85 07/17/23 22:36 132/84 07/17/23 21:20 36.4 C L 76 16 155/99 H 07/17/23 20:37 77 130/77 07/17/23 19:40 83 133/89 07/17/23 19:39 83 07/17/23 19:34 84 07/17/23 19:29 76 07/17/23 19:24 77 07/17/23 19:19 85 07/17/23 19:15 07/17/23 19:15 36.5 C 18 07/17/23 19:15 18 07/17/23 19:14 79 07/17/23 19:09 76 07/17/23 19:04 76 07/17/23 19:03 75 139/81 07/17/23 18:59 80 07/17/23 18:54 76 07/17/23 18:53 16 07/17/23 18:49 80 07/17/23 18:44 79 07/17/23 18:39 83 07/17/23 18:34 90 07/17/23 18:29 83 07/17/23 18:24 79 07/17/23 18:19 77 07/17/23 18:14 75 07/17/23 18:09 73 07/17/23 18:04 74 07/17/23 18:03 80 156/85 H 07/17/23 18:00 16 07/17/23 17:59 74 07/17/23 17:54 77 07/17/23 17:49 76 07/17/23 17:44 80 07/17/23 17:39 86 07/17/23 17:34 81 07/17/23 17:29 83 07/17/23 17:24 84 07/17/23 17:19 84 07/17/23 17:14 77 07/17/23 17:09 77 07/17/23 17:04 76 07/17/23 17:02 68 140/81 07/17/23 17:00 18 07/17/23 16:59 74 07/17/23 16:54 77 07/17/23 16:49 74 07/17/23 16:44 79 07/17/23 16:39 76 07/17/23 16:34 79 Pulse Ox O2 Del Method 07/18/23 04:14 07/17/23 23:58 Room Air 07/17/23 22:36 07/17/23 21:20 Room Air 07/17/23 20:37 07/17/23 19:40 07/17/23 19:39 96 07/17/23 19:34 96 07/17/23 19:29 95 07/17/23 19:24 94 07/17/23 19:19 97 07/17/23 19:15 Room Air 07/17/23 19:15 07/17/23 19:15 07/17/23 19:14 96 07/17/23 19:09 97 07/17/23 19:04 96 07/17/23 19:03 07/17/23 18:59 96 07/17/23 18:54 96 07/17/23 18:53 07/17/23 18:49 96 07/17/23 18:44 95 07/17/23 18:39 96 07/17/23 18:34 96 07/17/23 18:29 96 07/17/23 18:24 95 07/17/23 18:19 96 07/17/23 18:14 96 07/17/23 18:09 95 07/17/23 18:04 95 07/17/23 18:03 07/17/23 18:00 07/17/23 17:59 94 07/17/23 17:54 95 07/17/23 17:49 96 07/17/23 17:44 96 07/17/23 17:39 95 07/17/23 17:34 96 07/17/23 17:29 95 07/17/23 17:24 96 07/17/23 17:19 95 07/17/23 17:14 95 07/17/23 17:09 96 07/17/23 17:04 96 07/17/23 17:02 07/17/23 17:00 07/17/23 16:59 95 07/17/23 16:54 95 07/17/23 16:49 95 07/17/23 16:44 94 07/17/23 16:39 94 07/17/23 16:34 95 Supervising Physician <Aziza Tamayo MD - Last Filed: 07/18/23 08:23> Co-Signing Physician Notes Resident Physician Supervision Note: I interviewed and examined the patient. Discussed with Dr. Bal and agree with findings and plan as documented in the note. Any exceptions or clarifications are listed here: PP2 s/p c/b PET w/ SF. Came off mag last night, BPs have been stable and not requiring meds. Labs P this AM to ensure downtrend of Cr. Exam benign and wnl. Lovenox 40mg q12 ordered per tigertext with Dr. Julio. Continue pp care Documented By: Aziza Tamayo MD Resident Activity Tracking <Sumeet Bal DO - Last Filed: 07/18/23 05:54> Resident Involvement: Resident Care Provided Care Provided: OB Delivery
[2023-07-18] MEDS: DOCUSATE SODIUM 100 MG CAP PO SCH ×2 (07:22→20:28)
[2023-07-18] MEDS: PRENATAL VITAMIN 1 TAB PO SCH (07:22)
[2023-07-18] MEDS: IBUPROFEN 600 MG TAB PO PRN ×4 (07:22→20:29)
[2023-07-18] MEDS: FERROUS SULFATE 325 MG TAB PO SCH (07:22)
[2023-07-18 07:55] LABS: Hematocrit (blood only) 29.5 % (37.0-47.0); Mean Corpuscular Hemoglobin 28.4 pg (25.0-34.0); Mean Corpuscular Hgb Conc 33.9 g/dL (32.0-36.0); Mean Corpuscular Volume 83.8 fL (80.0-100.0); Platelet Count 257 K/uL (130-400); RDW Coefficient of Variation 14.7 % (11.5-14.5); RDW Standard Deviation 44.5 fL (36.4-46.3); Red Blood Count 3.52 M/uL (4.20-5.40); White Blood Count 15.24 K/ul (4.8-10.8)
[2023-07-18 08:02] LABS: Albumin Globulin Ratio 1.1 (0.9-2); Albumin Level 2.8 gm/dl (3.4-5.0); BUN Creatinine Ratio 16.8 (10-20); Bilirubin,Total 0.2 mg/dl (0.2-1.0); Calcium 6.7 mg/dl (8.6-10.3); Creatinine Clr Calc Pharmacy 95.6 ml/min; Globulin 2.6 gm/dl (2.5-4.0); Potassium 4.7 mmol/L (3.5-5.1); Total Protein 5.4 gm/dl (6.0-8.3)
[2023-07-18] MEDS: ENOXAPARIN INJ 40 MG/0.4 ML SYR SQ SCH ×2 (09:58→21:00)
[2023-07-18] MEDS: MAGNESIUM SULFATE / WTR 40 GM/1,000 ML BAG IV SCH (12:02)
--- NOTE | 2023-07-19 04:53 | Obstetrical Progress Note ---
Date of Service <Sumeet Bal DO - Last Filed: 07/19/23 07:14> July 19, 2023 Assessment & Plan <Sumeet Bal DO - Last Filed: 07/19/23 07:14> (1) Preeclampsia: (2) (spontaneous vaginal delivery): (3) History of DVT (deep vein thrombosis): Plan 27 year old female, , PPD#3: Eating well, voiding well, ambulating well Vitals reviewed, significant for intermittently elevated BP, most recent 157/96 - will dicharge on Nifedipine ER 60 mg daily with outpatient follow up in 1 week for BP check Continue Lovenox upon discharge Pain well controlled with Motrin Routine post care - OOB, ambulate, diet progression as tolerated Will have 6 week follow up with Dr. Shelton <Kristy Nolan MD, FACOG - Last Filed: 07/19/23 07:22> (1) Preeclampsia: (2) (spontaneous vaginal delivery): (3) History of DVT (deep vein thrombosis): Subjective <Sumeet Bal - Last Filed: 07/19/23 07:14> Ambulation: ambulating normally Voiding: no voiding problems Passing Gas:: Yes Diet Tolerance:: regular diet Lochia:: Moderate Feeding Type:: breast feeding Pain well controlled with Motrin Review of Systems -Denies fever or chills -Denies dyspnea, chest pain, or palpitations -Denies dysuria -Denies headache or changes in vision Physical Exam <Sumeet Bal - Last Filed: 07/19/23 07:14> General: Alert and oriented. No acute distress Cardiac: Regular rate and rhythm, no murmurs appreciated Respiratory: Lungs clear to auscultation bilaterally, No increased work of breathing Abdominal: Soft, non-tender, non-distended. Bowel sounds present. Uterus: Uterine fundus firm, palpable below umbilicus Extremities: No lower extremity edema appreciated, calves non-tender to palpation bilaterally Results & Data <Sumeet Bal - Last Filed: 07/19/23 07:14> Vital Signs (Past 12 Hours) Vital Signs Temp Pulse Resp BP O2 Del Method 07/19/23 00:18 36.4 C L 62 16 157/96 H Room Air 07/18/23 20:05 36.6 C 92 H 16 144/90 H Room Air Supervising Physician <Kristy Nolan MD, FACOG - Last Filed: 07/19/23 07:22> Co-Signing Physician Notes Resident Physician Supervision Note: I was present with Dr. Bal during the history and exam. I discussed the case with the resident and agree with the findings and plan as documented in the note. Any exceptions or clarifications are listed here: [None] Documented By: Kristy Nolan MD, FACOG Resident Activity Tracking <Sumeet Bal DO - Last Filed: 07/19/23 07:14> Resident Involvement: Resident Care Provided Care Provided: OB Delivery
[2023-07-19] MEDS: DOCUSATE SODIUM 100 MG CAP PO SCH (08:37)
[2023-07-19] MEDS: FERROUS SULFATE 325 MG TAB PO SCH (08:37)
[2023-07-19] MEDS: PRENATAL VITAMIN 1 TAB PO SCH (08:37)
[2023-07-19] MEDS: IBUPROFEN 600 MG TAB PO PRN (08:38)
[2023-07-19] MEDS: ENOXAPARIN INJ 40 MG/0.4 ML SYR SQ SCH (09:14)
== END 2023-07-19 10:45 | disposition home or self-care (01) | DRG 807 ==
LOC: OPB 12:16 → 4S1 12:27 → 4E2 07-17 20:40